=== PATIENT | female | born 1960 | race Caucasian/White ===

== ENCOUNTER → 2023-07-28 08:28 | Outpatient (REF) | payer OTHER, SELFPAY | LOC: MRI 3T 08:28 | PROVIDERS: ATTENDING PHYSICIAN Internal Medicine Gastroenterology; FAMILY PHYSICIAN Nurse Practitioner | DX: K86.89 Other specified diseases of pancreas (principal) | CPT/HCPCS: 74183; A9575 ==

== ENCOUNTER → 2023-08-25 09:29 | Outpatient (REF) | payer OTHER, SELFPAY | LOC: HWRAD 09:29 | PROVIDERS: ATTENDING PHYSICIAN Internal Medicine Cardiovascular Disease; FAMILY PHYSICIAN Nurse Practitioner | DX: I71.21 Aneurysm of the ascending aorta, without rupture (principal) | CPT/HCPCS: 71250 ==

== ENCOUNTER → 2024-01-19 07:55 | Outpatient (REF) | payer OTHER, SELFPAY | LOC: WDC 07:55 | PROVIDERS: ATTENDING PHYSICIAN Obstetrics & Gynecology; FAMILY PHYSICIAN Nurse Practitioner | DX: Z12.31 Encounter for screening mammogram for malignant neoplasm of breast (principal) | CPT/HCPCS: 77063; 77067 ==

== ENCOUNTER 2025-01-17 12:03 | Emergency (ER) | payer OTHER, SELFPAY ==
[2025-01-17 12:10] VITALS: BP 125/80
--- NOTE | 2025-01-17 13:00 | ED.GENMED ---
History of Present Illness
General
Chief Complaint: Swelling
Source: patient
Exam Limitations: none
Time Seen by Provider: 01/17/25 12:48
History of Present Illness
History of Present Illness:
64-year-old female 2 weeks of ongoing cough. Some clear sputum. Cough has been very annoying. Yesterday she started noting swelling to the right side of her neck. It hurts to swallow. She was seen in urgent care and sent here for further
evaluation. She denies chest pain.
Past History
Past History
ED Past Medical History: HTN, Hypercholesterolemia, Psychiatric (Anxiety) and Other (Vertigo, celiac sprue, Dilated ascending aorta 4.3 cm); Negative IDDM, NIDDM or TX
ED Past Surgical History: Cholecystectomy
Social History
Tobacco: Smoker
Alcohol: Occasional
Drug: None
Personal:
Living: with family
Employment: Employed
Family History
Family History: Other (Noncontributory); Negative Early CAD
Review of Systems
Review of Systems
All Other Systems: Not applicable
Constitutional: Denies fever
Cardiac: Denies chest pain
ABD/GI: Reports no symptoms
Phy Exam
Physical Exam
Physical Exam:
GENERAL: Alert and oriented in no apparent distress
EYE: Orbits normal.
NECK: Supple, mild swelling to the right submandibular area somewhat anterior. No crepitus. No drooling no stridor speech is normal. Posterior pharynx normal. No intraoral issues
ENT: Pharynx without erythema
CARDIAC: Regular rate and rhythm without any obvious murmurs.
LUNGS: Clear breath sounds,normal
ABDOMEN: Soft, without focal tenderness or distention
NEUROLOGICAL: Alert and oriented , grossly non-focal
SKIN: Warm and dry, no rash or lesion, no discoloration, skin intact.
MUSCULOSKELETAL: No edema,no deformity.Good color
PSYCH: Normal and appropriate interaction.
Scores
Heart Failure Risk
Heart Failure Risk Score: Not Applicable
Course
Orders/Labs/Results
Orders:
Orders
01/17/25 12:53
CT Neck Angio W/wo Iv Contrast Urgent
Comment:
Reason For Exam: R neck swell. ascending aorta 4.[address]
01/17/25 12:54
0.9% Sodium Chloride 500 ml [Nss] 500 ml IV BOLUS
01/17/25 12:58
CXR2 [CR Chest - 2 Views ] Urgent
Comment:
Reason For Exam: Ongoing cough
01/17/25 13:08
BMP [Basic Metabolic Panel] Urgent
CBC/With Diff [Complete Blood Count/With Diff] Urgent
COVID-19 Antigen Urgent
Source: Nasal Swab
Influenza A+B Rapid Molecular Urgent
JUAQUIN Source: Nasal Swab
Specimen Description:
Abnormal Lab Results
01/17/25
13:08
WBC 11.6 H 10^3/uL
(4.8-10.8)
MCH 31.8 H pg
(27.0-31.0)
Abs Immat Gran (auto) 0.1 H 10^3/uL
(0-0.05)
Absolute Lymphs (auto) 4.1 H 10^3/uL
(1.2-3.4)
Absolute Monos (auto) 0.8 H 10^3/uL
(0.1-0.6)
Chloride 108 H mmol/L
(98-107)
BUN 19 H mg/dl
(7-17)
01/17/25 13:08
01/17/25 13:08
Vital Signs
Initial and Last Documented VS:
Initial Vital Signs
BP
125/80
01/17/25 12:10
Last Documented Vital Signs
Temp Pulse Resp BP Pulse Ox
98.8 F 80 18 140/72 99
01/17/25 12:12 01/17/25 18:10 01/17/25 18:10 01/17/25 18:10 01/17/25 18:10
MDM/Problems Addressed
Differential Diagnosis Includes:
Painful swelling to the right neck with 2 weeks of cough and congestion. No crepitus. Doubt pneumothorax or subcu air. Unlikely to be a vascular issue. It is not pulsatile. However with patient's known 4.3 cm ascending aortic dilatation this
needs to be evaluated. Adenopathy muscular wall in the differential. Clinically patient is stable. Discussed with CT catching the ascending aorta on the next CT which they feel they can do.
*Radiology
Radiology exam reviewed: radiology read reviewed (Negative CT)
*Pulse Oximetry
SaO2: 98
Oxygen Mode of Delivery: Room air
Patient hypoxic: no (98)
*Critical Care Note
Total Time (30-74mins, 75-104mins- exclusive of procedures): Not Applicable
Data Reviewed
Review of Other/Old Records Reveals: Labs, Records and Radiology Studies
Update Note
Update Note:
Medically stable and updated. I suspect this might be a muscular sternocleidomastoid issue. Nothing to support a vascular issue. This is not air. There is no sign of an abscess or infection. We will cover with antibiotics for the ongoing cough.
ED Attending Note
-
Portions of this chart may have been created with voice recognition software.� Occasional wrong word or��sound alike� substitutions may have occurred due to the inherent limitations of voice recognition software.
Discharge Plan
Departure
Patient Disposition: Home (Routine Discharge)
Date of Disposition: 01/17/25
Time of Disposition: 17:54
Patient with high blood pressure during this ER visit?: Yes
Discharge Problem:
Ongoing bronchitis, Right neck swelling, Known ascending aortic dilatation
Instructions: Acute bronchitis in adults, BLOOD PRESSURE
Prescriptions:
New
cefuroxime axetil 500 mg tablet
500 mg PO BID 7 Days Qty: 14 0RF
No Action
atorvastatin [Lipitor] 40 mg Tablet
40 mg PO QPM
acetaminophen [Tylenol] 325 mg Tablet
650 mg PO Q6HPRN PRN (Reason: mild pain)
losartan 25 mg Tablet
25 mg PO DAILY
metoprolol succinate [Toprol XL] 25 mg Tablet Extended Release 24 Hr
25 mg PO DAILY
estradiol [Estrace] 0.01 % (0.1 mg/gram) Cream
1 appful VAGINAL MOTH
esomeprazole magnesium [Nexium] 20 mg Capsule,Delayed Release(Dr/Ec)
20 mg PO DAILY
escitalopram oxalate [Lexapro] 10 mg Tablet
10 mg PO DAILY
Visbiome 112.5 billion cell Capsule
1 cap PO DAILY
Referrals:
Brooklynn Diaz CRNP [Family Provider, General] - Follow up in 2-3 days
Activity Restrictions/Additional Instructions:
Recheck with increased pain increased swelling increased trouble breathing or swallowing. Also get the neck rechecked if not improving in 2 to 3 days
Interventions
Interventions:
*General Assessment Last Done: 01/17/25 12:20
*Nursing Disposition Last Done: 01/17/25 18:15
ED- Cardiac Assessment Last Done: 01/17/25 12:20
ED- Pulmonary Assessment Last Done: 01/17/25 12:20
ED-Skin Assessment Last Done: 01/17/25 12:20
Discharge Date and Time
Discharge Date/Time: 01/17/25 18:16
Print Language: ARABIC
[2025-01-17] MEDS: NSS 500 IV (13:10)
[2025-01-17 13:54] LABS: Hematocrit 43.5 % (37.0-47.0); Hemoglobin 14.8 g/dL (12.0-16.0); Mean Corp Hgb Conc. 34.0 g/dL (33.0-37.0); Mean Corpuscular Volume 93.5 fL (81.0-99.0); Nucleated Red Blood Cells % 0 %; Platelet Count 327 10^3/uL (130-400); Red Cell Dist. Width 14.0 % (11.5-14.5)
[2025-01-17 14:09] LABS: Blood Urea Nitrogen 19 mg/dl (7-17); Calcium 9.4 mg/dl (8.4-10.2); Carbon Dioxide 27 mmol/L (22-30); Chloride 108 mmol/L (98-107); Glucose 88 mg/dl (70-99); Sodium 138 mmol/L (135-145); eGFR > 60.00
[2025-01-17 14:21] LABS: COVID-19 Antigen Negative (Negative)
[2025-01-17 14:28] VITALS: BP 130/70
[2025-01-17 18:10] VITALS: BP 140/72
== END 2025-01-17 18:16 | disposition home or self-care (01) ==
LOC: EMR 12:03
PROVIDERS: EMERGENCY PHYSICIAN Emergency Medicine; FAMILY PHYSICIAN Nurse Practitioner
DX: J40 Bronchitis, not specified as acute or chronic (principal); R22.1 Localized swelling, mass and lump, neck; I77.819 Aortic ectasia, unspecified site; R05.9 Cough, unspecified; I10 Essential (primary) hypertension; E11.9 Type 2 diabetes mellitus without complications; E78.00 Pure hypercholesterolemia, unspecified; F17.200 Nicotine dependence, unspecified, uncomplicated; F41.9 Anxiety disorder, unspecified; K90.0 Celiac disease; Z90.49 Acquired absence of other specified parts of digestive tract
CPT/HCPCS: 99284; 70498; 71046; 80048; 85025; 87502; 87811; Q9967

== ENCOUNTER → 2025-01-24 07:57 | Outpatient (REF) | payer OTHER, SELFPAY | LOC: WDC 07:57 | PROVIDERS: ATTENDING PHYSICIAN Obstetrics & Gynecology; FAMILY PHYSICIAN Internal Medicine Gastroenterology | DX: Z12.31 Encounter for screening mammogram for malignant neoplasm of breast (principal) | CPT/HCPCS: 77063; 77067 ==